=== PATIENT | female | born 1980 ===

== ENCOUNTER 2018-04-25 16:54 | Emergency (ER) | payer MEDICAID, MEDICARE ==
[2018-04-25 16:54] VITALS: BMI 39.4
--- NOTE | 2018-04-25 18:19 | ED PDOC ---
HPI: Allergic Reaction Time Seen by Provider: 04/25/18 18:10 Chief Complaint (Nursing): Allergic Reaction Chief Complaint (Provider): ALLERGIC REACTION History Per: Patient (38 Y/O FEMALE HERE WITH RASH NOTED INTERMITTENTLY ON CHEST WALL X 2 DAYS WITH ADDITIONAL RASH NOTED LEFT THIGH. NO MEDICATIONS PRIOR TO ED ARRIVAL.) Past Medical History Reviewed: Historical Data, Nursing Documentation, Vital Signs Vital Signs: Last Vital Signs Temp 98.6 F 04/25/18 17:31 Pulse 78 04/25/18 17:31 Resp 16 04/25/18 17:31 BP 115/78 04/25/18 17:31 Pulse Ox 97 04/25/18 17:31 - Medical History PMH: Anxiety, Asthma, Cardia Arrhythmia (AFib during anxiety/panic attacks), Depression, Diabetes, Migraine, Post Traumatic Stress Disorder, Sleep Apnea ( sleep study done 8 yrs ago) Denies: Chronic Kidney Disease - Surgical History Surgical History: Cholecystectomy - Family History Family History: States: Unknown Family Hx - Immunization History Hx Tetanus Toxoid Vaccination: No Hx Influenza Vaccination: No Hx Pneumococcal Vaccination: No - Home Medications Home Medications: Ambulatory Orders Medication Instructions Recorded ALPRAZolam [Xanax] 0.25 mg PO HS 09/06/17 Montelukast [Singulair] 10 mg PO HS #30 tab 09/13/17 Albuterol 0.083% [Albuterol 0.083% 3 ml IH Q4 PRN #1 pkg 02/14/18 Inhal Roxann (2.5 mg/3 ml) UD] Albuterol HFA [Ventolin HFA 90 2 puff IH [id number] PRN #1 puff 02/14/18 mcg/actuation (8 g)] Nitrofurantoin Macrocrystals 100 mg PO BID 7 Days #14 cap 04/18/18 [Macrobid] Phenazopyridine [Pyridium] 200 mg PO TID 5 Days #15 tab 04/18/18 Naproxen [Naprosyn] 500 mg PO BID 5 Days #10 tablet 04/19/18 hydrOXYzine Pamoate [Vistaril] 50 mg PO Q6 PRN #20 cap 04/25/18 predniSONE [Prednisone] 3 tab PO DAILY #12 tab 04/25/18 - Allergies Allergies/Adverse Reactions: Allergies Allergy/AdvReac Type Severity Reaction Status Date / Time codeine Allergy RASH Verified 04/18/18 18:22 duloxetine HCl Allergy RASH Verified 04/18/18 18:22 [From Cymbalta] latex Allergy RASH Verified 04/18/18 18:22 Penicillins Allergy ANAPHYLAXIS Verified 04/18/18 18:22 pineapple Allergy SWELLING Verified 04/18/18 18:22 Shellfish Allergy ANAPHYLAXIS Uncoded 04/18/18 18:22 Review of Systems ROS Statement: Except As Marked, All Systems Reviewed And Found Negative Physical Exam - Reviewed Nursing Documentation Reviewed: Yes Vital Signs Reviewed: Yes - Physical Exam Appears: Positive for: Well, Non-toxic, No Acute Distress Head Exam: Positive for: ATRAUMATIC, NORMAL INSPECTION, NORMOCEPHALIC Skin: Positive for: Normal Color, Warm, Rash (ERYTHEMA NOTED CHEST WALL AND LEFT PROXIMAL THIGH) Eye Exam: Positive for: EOMI, Normal appearance, PERRL ENT: Positive for: Normal ENT Inspection Neck: Positive for: Normal, Painless ROM Cardiovascular/Chest: Positive for: Regular Rate, Rhythm Respiratory: Positive for: CNT, Normal Breath Sounds Gastrointestinal/Abdominal: Positive for: Normal Exam, Soft Back: Positive for: Normal Inspection Extremity: Positive for: Normal ROM Neurologic/Psych: Positive for: Alert, Oriented - ECG O2 Sat by Pulse Oximetry: 97 - Progress ED Course And Treament: HYDROXYZINE 50 MG IM X 1 DOSE PREDNISONE 60MG X 1 DOSE Disposition - Clinical Impression Clinical Impression: Allergic reaction - Patient ED Disposition Is Patient to be Admitted: No - Disposition Disposition Time: 19:16 Condition: FAIR Prescriptions: hydrOXYzine Pamoate [Vistaril] 50 mg PO Q6 PRN #20 cap PRN Reason: Itching / Pruritus predniSONE [Prednisone] 3 tab PO DAILY #12 tab Instructions: Hives (DC) Forms: [facility] ED School/Work Excuse
[2018-04-25] MEDS: hydrOXYzine HCl 50 mg/ml Inj IM STA (18:46)
[2018-04-25 19:28] VITALS: BP 110/73; PULSE 76; RESP 14; TEMP 98.1; O2SAT 100
== END 2018-04-25 19:30 | disposition home or self-care (01) ==
LOC: H.ER 16:54
DX: T78.40XA Allergy, unspecified, initial encounter (principal); J45.909 Unspecified asthma, uncomplicated; Z88.0 Allergy status to penicillin
CPT/HCPCS: 81025; 96372; 99284; J3410